=== PATIENT | male | born 1935 | race Hispanic/Latino ===

== ENCOUNTER 2021-11-18 07:00 | Day surgery (SDC) | payer MEDICARE ==
[2021-11-15 10:00] VITALS: BP 105/51
[2021-11-15 10:23] LABS: BASOPHILS % (AUTO) 0.5 % (0.0-5.0); EOSINOPHILS % (AUTO) 2.4 % (0.0-8.0); HEMATOCRIT 39.6 % (42-54); LYMPHOCYTES % (AUTO) 14.1 % (21.0-51.0); MEAN CORPUSCULAR HEMOGLOBIN 32.6 pg (27.0-33.0); MEAN CORPUSCULAR HGB CONC 32.3 g/dL (32.0-36.0); MEAN CORPUSCULAR VOLUME 100.8 fL (79-99); MONOCYTES % (AUTO) 8.6 % (3.0-13.0); NEUTROPHILS % (AUTO) 73.9 % (40.0-77.0); PLATELET COUNT (AUTO) 157 K/uL (130-400); RED BLOOD CELL COUNT(AUTO) 3.93 MIL/uL (4.50-6.20); RED CELL DISTRIBUTION WIDTH 13.7 % (11.0-15.5); WHITE BLOOD COUNT (AUTO) 7.6 K/uL (4.8-10.8)
[2021-11-15 10:35] LABS: INR 1.05 (0.85-1.15); PROTHROMBIN TIME 11.4 SEC (9.6-11.6)
[2021-11-15 10:36] LABS: PARTIAL THROMBOPLASTIN TIME 28.9 SEC (26.3-35.5)
[2021-11-15 10:38] LABS: ALBUMIN 3.2 g/dL (3.5-5.0); CREATININE 4.1 mg/dL (0.5-1.5); POTASSIUM 4.7 mmol/L (3.5-5.1); TOTAL PROTEIN, SERUM 6.8 g/dL (6.0-8.3)
[~2021-11-18] VITALS: Ht 162.6 cm; Wt 74.4 kg
[2021-11-18] VITALS (19 sets, daily range): BP systolic 125–166; BP diastolic 48–73
[~2021-11-18 07:00] MED LIST: CEFAZOLIN SODIUM 1 GM VIAL IVP SCH; ELIQUIS PO; INSLAN SQ; METO-408 PO
[2021-11-18] MEDS ORDERED: 0.9%NACL 1000ML 1,000 ML IV ONE (08:06)
[2021-11-18] MEDS ORDERED: VITAMIN B12 PO (09:08)
[2021-11-18] MEDS ORDERED: DOCU100C33 PO (09:08)
[2021-11-18] MEDS ORDERED: FOLI1TAB61 PO (09:08)
[2021-11-18] MEDS ORDERED: APIX2.5T PO (09:08)
[2021-11-18] MEDS ORDERED: CHOL200074 PO (09:08)
[2021-11-18] MEDS ORDERED: GLYCOPYRROLATE 1 MG/5 ML SYRINGE ONE (10:04)
[2021-11-18] MEDS ORDERED: ROCURONIUM 10MG/1ML SYR 10 MG/ML ML ONE (10:05)
[2021-11-18] MEDS ORDERED: PROPOFOL 10 MG/ML 20ML VIAL IV ONE (10:05)
[2021-11-18] MEDS ORDERED: CEFAZOLIN SODIUM 2 GM VIAL IV ONE (10:31)
[2021-11-18] MEDS ORDERED: ONDANSETRON 4MG INJ ONE (10:35)
[2021-11-18] MEDS ORDERED: FENTANYL CITRATE PF 50 MCG/1 ML 2ML VIAL ONE (11:29)
[2021-11-18] MEDS ORDERED: NEOSTIGMINE 5MG/5ML SYR IV ONE (11:50)
== END 2021-11-18 14:10 | disposition home or self-care (01) ==
LOC: DAH 07:00
PROVIDERS: ATTEND Student in an Organized Health Care Education/Training Program
DX: E11.22 Type 2 diabetes mellitus with diabetic chronic kidney disease (principal); I12.0 Hypertensive chronic kidney disease with stage 5 chronic kidney disease or end stage renal disease; N18.6 End stage renal disease; K21.9 Gastro-esophageal reflux disease without esophagitis; D64.9 Anemia, unspecified; H54.7 Unspecified visual loss; Z79.4 Long term (current) use of insulin; Z99.2 Dependence on renal dialysis; Z79.01 Long term (current) use of anticoagulants; Z79.899 Other long term (current) drug therapy; Z98.890 Other specified postprocedural states; Z90.49 Acquired absence of other specified parts of digestive tract
CPT/HCPCS: 71045; 87426; 80053; 85025; 85610; 85730; 86850 ×2; 86900 ×2; 86901 ×2; 36415 ×2; 93005; 36821; 84132; 82948 ×3; A6260; A4663; A6207; J0690 ×2; J3010; J3490; J2710; J7030; J2704; J2405; J1644; A4649; C1713 ×2; A4215; A4223; A4222; A4221

== ENCOUNTER 2022-01-27 06:39 | Day surgery (SDC) | payer MEDICARE ==
[2022-01-24 08:42] LABS: BASOPHILS % (AUTO) 0.5 % (0.0-5.0); EOSINOPHILS % (AUTO) 2.6 % (0.0-8.0); HEMATOCRIT 33.4 % (42-54); LYMPHOCYTES % (AUTO) 18.6 % (21.0-51.0); MEAN CORPUSCULAR HEMOGLOBIN 31.7 pg (27.0-33.0); MEAN CORPUSCULAR HGB CONC 33.2 g/dL (32.0-36.0); MEAN CORPUSCULAR VOLUME 95.4 fL (79-99); MONOCYTES % (AUTO) 8.2 % (3.0-13.0); NEUTROPHILS % (AUTO) 69.5 % (40.0-77.0); PLATELET COUNT (AUTO) 179 K/uL (130-400); RED CELL DISTRIBUTION WIDTH 13.3 % (11.0-15.5); WHITE BLOOD COUNT (AUTO) 6.5 K/uL (4.8-10.8)
[2022-01-24 08:52] LABS: PROTHROMBIN TIME 10.9 SEC (9.6-11.6)
[2022-01-24 09:06] LABS: ALBUMIN 3.4 g/dL (3.5-5.0); CREATININE 5.2 mg/dL (0.5-1.5); POTASSIUM 4.2 mmol/L (3.5-5.1); TOTAL PROTEIN, SERUM 7.1 g/dL (6.0-8.3)
[2022-01-26 12:05] VITALS: BP 117/58
[2022-01-27] VITALS (17 sets, daily range): BP systolic 106–130; BP diastolic 45–69
[~2022-01-27] VITALS: Ht 167.6 cm; Wt 74.8 kg
[~2022-01-27 06:39] MED LIST changes: +APIX2.5T PO; -CEFAZOLIN SODIUM 1 GM VIAL IVP SCH; +CHOL200074 PO; +DOCU100C33 PO; -ELIQUIS PO; +FOLI1TAB61 PO; -INSLAN SQ; +VITAMIN B12 PO
[2022-01-27] MEDS: CEFAZOLIN SODIUM 1 GM VIAL IVP SCH ×2 (08:00→10:56)
[2022-01-27] MEDS ORDERED: 0.9% NACL 500ML IV.SOLN 500 ML IV ONE (08:02)
[2022-01-27] MEDS ORDERED: MIDAZOLAM HCL 1 MG/ML 2ML VIAL ONE (10:20)
[2022-01-27] MEDS ORDERED: FENTANYL CITRATE PF 50 MCG/1 ML 2ML VIAL ONE ×2 (10:21→11:28)
[2022-01-27] MEDS ORDERED: ROPIVACAINE 0.5% 5MG/ML 30ML IJ ONE (10:23)
[2022-01-27] MEDS ORDERED: PROPOFOL 10 MG/ML 20ML VIAL IV ONE (11:00)
[2022-01-27] MEDS ORDERED: HEPARIN 10,000 UNIT/10ML (1,000 UNIT/ML) VIAL ONE (11:40)
== END 2022-01-27 14:55 | disposition home or self-care (01) ==
LOC: DAH 06:39
PROVIDERS: ATTEND Student in an Organized Health Care Education/Training Program
DX: E11.22 Type 2 diabetes mellitus with diabetic chronic kidney disease (principal); I12.0 Hypertensive chronic kidney disease with stage 5 chronic kidney disease or end stage renal disease; N18.6 End stage renal disease; D64.9 Anemia, unspecified; H54.7 Unspecified visual loss; Z99.2 Dependence on renal dialysis; Z90.49 Acquired absence of other specified parts of digestive tract; Z98.890 Other specified postprocedural states; Z79.01 Long term (current) use of anticoagulants
CPT/HCPCS: 80053; 85025; 85610; 85730; 86850 ×2; 86900 ×2; 86901 ×2; 87426; 36415 ×2; 93005; 64415; 36818; 84132; 82948 ×2; 76942; A6260; J7040; J3010 ×2; J0690; J1644 ×2; J2250; J2704; J2795; G0168; A4649 ×2; C1713 ×2; A4930; A5120; A4215; A4223; A4222; A4221; A4663

== ENCOUNTER → 2022-09-26 | Outpatient (CLI) | payer MEDICARE ==
[2022-09-26 16:28] LABS: BASOPHILS % (AUTO) 0.7 % (0.0-5.0); EOSINOPHILS % (AUTO) 2.5 % (0.0-8.0); HEMATOCRIT 28.4 % (42-54); LYMPHOCYTES % (AUTO) 24.3 % (21.0-51.0); MEAN CORPUSCULAR HEMOGLOBIN 33.2 pg (27.0-33.0); MEAN CORPUSCULAR VOLUME 103.6 fL (79-99); MONOCYTES % (AUTO) 9.6 % (3.0-13.0); NEUTROPHILS % (AUTO) 62.2 % (40.0-77.0); PLATELET COUNT (AUTO) 205 K/uL (130-400); RED BLOOD CELL COUNT(AUTO) 2.74 MIL/uL (4.50-6.20); RED CELL DISTRIBUTION WIDTH 15.2 % (11.0-15.5); WHITE BLOOD COUNT (AUTO) 7.3 K/uL (4.8-10.8)
[2022-09-26 16:42] LABS: INR 1.12 (0.85-1.15); PROTHROMBIN TIME 12.1 SEC (9.6-11.6)
[2022-09-26 16:43] LABS: PARTIAL THROMBOPLASTIN TIME 27.6 SEC (26.3-35.5); POTASSIUM 4.7 mmol/L (3.5-5.1)
== END | disposition home or self-care (01) ==
LOC: LAB 15:59
PROVIDERS: ATTEND Internal Medicine Cardiovascular Disease
DX: I48.0 Paroxysmal atrial fibrillation (principal); I73.9 Peripheral vascular disease, unspecified; M79.604 Pain in right leg; I44.30 Unspecified atrioventricular block; E11.22 Type 2 diabetes mellitus with diabetic chronic kidney disease; N18.6 End stage renal disease; E11.51 Type 2 diabetes mellitus with diabetic peripheral angiopathy without gangrene; Z79.01 Long term (current) use of anticoagulants; Z79.02 Long term (current) use of antithrombotics/antiplatelets; Z79.899 Other long term (current) drug therapy
CPT/HCPCS: 36415; 80048; 85025; 85610; 85730